=== PATIENT | female | born 1965 | race African-American/Black ===

== ENCOUNTER 2016-05-16 13:14 | Emergency (ER) | payer BC ==
[~2016-05-16] VITALS: Ht 175.3 cm; Wt 136.4 kg
[~2016-05-16 13:14] MED LIST: BACTRIM DS 8001 TAB PO; BYSTOLIC2.5 MG PO; CEPHALEXIN500 M1 PO; FERROUS SULFATE65 MG PO; FERROUSAL325 MG PO; FLEXERIL 1010 MG/TAB PO; GLUCOPHAGE1000 MG PO; GLUCOPHAGE500 MG/TAB PO; NO HOME MEDICATIONS; PERCOCET 325 MG1 TA2 PO; PRENATAL1 TA6 PO; PRINZIDE 25 MG-1 TAB PO; VITAMIN D 400400 IU PO; VITAMIN D1000 IU PO; VITAMIN D2000 I1 PO; ZESTORETIC 25 M1 TAB PO
[2016-05-16 13:21] VITALS: BP 147/75; PULSE 87; TEMP 98.1
[2016-05-16] MEDS ORDERED: ULTRAM 50MG TAB50 MG PO (14:18)
== END 2016-05-16 14:27 | disposition home or self-care (01) ==
LOC: COL.ER 13:14
DX: M25.562 Pain in left knee (principal); E11.9 Type 2 diabetes mellitus without complications; Z79.84 Long term (current) use of oral hypoglycemic drugs; I10 Essential (primary) hypertension

== ENCOUNTER 2016-08-31 16:30 | Outpatient (RCR) | payer BC ==
[2016-08-26] VITALS (9 sets, daily range): BP systolic 107–121; BP diastolic 46–62; PULSE 71–91; TEMP 97.2–98.3
[~2016-08-31 16:30] MED LIST changes: +ULTRAM 50MG TAB50 MG PO
== END 2016-11-23 | disposition home or self-care (01) ==
LOC: EUO
DX: D64.89 Other specified anemias (principal); Z87.42 Personal history of other diseases of the female genital tract
CPT/HCPCS: J7050; P9016

== ENCOUNTER 2016-09-10 16:30 | Outpatient (RCR) | payer BC, OTHER ==
[2016-08-31 17:35] VITALS: BP 126/69; PULSE 84; TEMP 98.2
[2016-09-03 16:58] VITALS: BP 131/61; PULSE 75; TEMP 97.6
[2016-09-07 17:24] VITALS: BP 151/78; PULSE 70
[~2016-09-10] VITALS: Ht 175.3 cm; Wt 130.0 kg
[2016-09-10 16:47] VITALS: BP 106/68; PULSE 79; TEMP 98.1
== END 2016-09-10 18:19 | disposition home or self-care (01) ==
LOC: EUO 16:30
DX: E61.1 Iron deficiency (principal)
CPT/HCPCS: J2916

== ENCOUNTER 2016-10-09 08:00 | Outpatient (RCR) | payer BC, OTHER | END 2016-12-01 | LOC: WSPT | DX: M25.562 Pain in left knee (principal) ==

== ENCOUNTER 2017-01-14 08:00 | Outpatient (RCR) | payer BC, OTHER | END 2017-02-18 12:01 | LOC: WSPT 08:00 | DX: M25.561 Pain in right knee (principal); M25.562 Pain in left knee ==

== ENCOUNTER 2017-03-16 14:16 | Emergency (ER) | payer BC ==
[~2017-03-16] VITALS: Ht 175.3 cm; Wt 127.3 kg
[2017-03-16 14:21] VITALS: TEMP 98.2
[2017-03-16 15:25] LABS: COLLECTION METHOD CLEAN CATCH
[2017-03-16 15:28] LABS: BASO % 0.6 % (0.0-2.0); EOS # 0.1 (0.0-0.7); EOS % 1.2 % (0-4.0); GRAN # 4.1 (1.4-6.5); GRAN % 58.9 % (42.2-75.2); HEMATOCRIT 39.1 % (37.0-47.0); HEMOGLOBIN 12.5 g/dl (12.5-16.0); LYMPH # 2.2 (1.2-3.4); LYMPH % 31.6 % (20.0-51.0); MEAN CELL VOLUME 93 fl (80.0-100.0); MEAN CORPUSCULAR HEMOGLOBIN 30 pg (27.0-31.0); MEAN CORPUSCULAR HGB CONC 32 g/dl (33.0-37.0); MEAN PLATELET VOLUME 8.6 fl (7.4-10.4); MONO # 0.5 (0.1-0.6); MONO % 7.4 % (1.7-9.3); PLATELET COUNT 398 K/mm3 (130-400); RED BLOOD COUNT 4.22 M/mm3 (4.10-5.30); WHITE BLOOD COUNT 6.9 K/mm3 (4.8-10.8)
[2017-03-16 15:38] LABS: MUCOUS Present /lpf; PH 5 (5-8); URINE APPEARANCE Cloudy; URINE BACTERIA Rare /hpf; URINE BILIRUBIN Negative (NEGATIVE); URINE BLOOD Negative (NEGATIVE); URINE COLOR Yellow; URINE GLUCOSE Negative (NEGATIVE); URINE KETONE Trace (NEGATIVE); URINE LEUKOCYTE ESTERASE Trace (NEGATIVE); URINE PROTEIN(semi-quant) 1+ (NEGATIVE); URINE RBC 0-2 /hpf
[2017-03-16 15:42] LABS: ADJUSTED CALCIUM 9.7 mg/dL (8.4-10.2); ALBUMIN 4.3 gm/dL (3.5-5.0); BILIRUBIN,TOTAL 0.3 mg/dL (0.0-1.0); C-REACTIVE PROTEIN 1.7 mg/dL (0.0-0.9); CALCIUM 9.9 mg/dL (8.4-10.2); CREATININE, serum 0.65 mg/dL (0.52-1.25); POTASSIUM 3.6 mmol/L (3.4-5.0); TOTAL PROTEIN 7.9 gm/dL (6.4-8.2)
[2017-03-16 16:37] VITALS: BP 130/72; PULSE 80
== END 2017-03-16 16:38 | disposition home or self-care (01) ==
LOC: COL.ER 14:16
PROVIDERS: Family Medicine
DX: T88.8XXA Other specified complications of surgical and medical care, not elsewhere classified, initial encounter (principal); R10.32 Left lower quadrant pain; I10 Essential (primary) hypertension; E11.9 Type 2 diabetes mellitus without complications; Z90.710 Acquired absence of both cervix and uterus; Z79.84 Long term (current) use of oral hypoglycemic drugs
CPT/HCPCS: J7030

== ENCOUNTER → 2017-03-18 | Outpatient (CLI) | payer BC | LOC: COL.RAD 11:00 | DX: T81.89XA Other complications of procedures, not elsewhere classified, initial encounter (principal); Z90.710 Acquired absence of both cervix and uterus | CPT/HCPCS: J7050; Q9967 ==

== ENCOUNTER → 2017-03-22 | Outpatient (CLI) | payer BC | LOC: COL.RAD 13:40 | DX: N99.842 Postprocedural seroma of a genitourinary system organ or structure following a genitourinary system procedure (principal); Z90.710 Acquired absence of both cervix and uterus ==

== ENCOUNTER 2017-10-25 16:59 | Emergency (ER) | payer BC ==
[~2017-10-25] VITALS: Ht 175.3 cm; Wt 131.8 kg
[2017-10-25 17:02] VITALS: TEMP 98.3
[2017-10-25 17:30] LABS: BASO % 0.6 % (0.0-2.0); EOS % 0.7 % (0-4.0); GRAN # 2.2 (1.4-6.5); GRAN % 41.1 % (42.2-75.2); HEMATOCRIT 36.8 % (37.0-47.0); HEMOGLOBIN 12.4 g/dl (12.5-16.0); LYMPH # 2.7 (1.2-3.4); LYMPH % 49.5 % (20.0-51.0); MEAN CELL VOLUME 93 fl (80.0-100.0); MEAN CORPUSCULAR HEMOGLOBIN 32 pg (27.0-31.0); MEAN CORPUSCULAR HGB CONC 34 g/dl (33.0-37.0); MEAN PLATELET VOLUME 8.9 fl (7.4-10.4); MONO # 0.4 (0.1-0.6); MONO % 8.1 % (1.7-9.3); PLATELET COUNT 323 K/mm3 (130-400); RED BLOOD COUNT 3.94 M/mm3 (4.10-5.30); REDCELL DISTRIBUTION WIDTH-CV 11.9 % (11.5-14.5)
[2017-10-25 17:39] LABS: ALANINE AMINOTRANSFERASE 18 U/L (9-52); ALBUMIN 3.9 gm/dL (3.5-5.0); ALKALINE PHOSPHATASE 79 U/L (50-136); ANION GAP 10 mmol/L (7-16); AST,SGOT 20 U/L (15-37); BILIRUBIN,TOTAL 0.3 mg/dL (0.0-1.0); BLOOD UREA NITROGEN 16 mg/dL (7-17); CALCIUM 9.4 mg/dL (8.4-10.2); CARBON DIOXIDE 25 mmol/L (22-30); CHLORIDE 100 mmol/L (98-107); CREATININE, serum 0.62 mg/dL (0.52-1.25); GLUCOSE 96 mg/dL (74-106); POTASSIUM 3.8 mmol/L (3.4-5.0); SODIUM 135 mmol/L (137-145)
[2017-10-25 17:58] LABS: TROPONIN-I < 0.012 ng/mL (0.000-0.034)
[2017-10-25 18:14] LABS: INR 0.9 (0.8-3.0); PROTHROMBIN TIME 10.1 SECONDS (9.7-12.8)
[2017-10-25 20:06] VITALS: BP 134/72; PULSE 78
== END 2017-10-25 20:06 | disposition home or self-care (01) ==
LOC: COL.ER 16:59
PROVIDERS: Family Medicine
DX: E86.0 Dehydration (principal); R07.89 Other chest pain; E11.9 Type 2 diabetes mellitus without complications; I10 Essential (primary) hypertension; Z90.710 Acquired absence of both cervix and uterus; Z79.84 Long term (current) use of oral hypoglycemic drugs
CPT/HCPCS: J7030

== ENCOUNTER → 2018-06-21 | Outpatient (CLI) | payer BC | LOC: SUN.DIA 14:03 | DX: E11.9 Type 2 diabetes mellitus without complications (principal); E78.5 Hyperlipidemia, unspecified; I10 Essential (primary) hypertension; E66.9 Obesity, unspecified | CPT/HCPCS: G0108 ==

== ENCOUNTER → 2018-06-22 | Outpatient (CLI) | payer BC | LOC: SUN.DIA 08:08 | DX: E11.9 Type 2 diabetes mellitus without complications (principal); E78.5 Hyperlipidemia, unspecified; I10 Essential (primary) hypertension; E66.9 Obesity, unspecified | CPT/HCPCS: G0108 ==

== ENCOUNTER → 2019-03-06 | Outpatient (CLI) | payer BC | LOC: MC.RAD 15:56 | DX: Z12.31 Encounter for screening mammogram for malignant neoplasm of breast (principal); N63.10 Unspecified lump in the right breast, unspecified quadrant; N63.20 Unspecified lump in the left breast, unspecified quadrant ==

== ENCOUNTER → 2020-02-05 | Outpatient (CLI) | payer BC | LOC: COL.LAB 09:40 | DX: K92.1 Melena (principal); Z20.828 Contact with and (suspected) exposure to other viral communicable diseases ==

== ENCOUNTER 2020-09-23 08:02 | Emergency (ER) | payer BC ==
[~2020-09-23] VITALS: Ht 170.2 cm; Wt 95.9 kg
[2020-09-23 08:20] VITALS: TEMP 97.9
[2020-09-23 08:38] LABS: BASO % 0.8 % (0.0-2.0); EOS % 0.6 % (0-4.0); GRAN # 1.4 (1.4-6.5); GRAN % 37.7 % (42.2-75.2); HEMATOCRIT 37.6 % (37.0-47.0); HEMOGLOBIN 12.4 g/dl (12.5-16.0); LYMPH # 1.9 (1.2-3.4); LYMPH % 51.5 % (20.0-51.0); MEAN CELL VOLUME 96 fl (80.0-100.0); MEAN CORPUSCULAR HEMOGLOBIN 32 pg (27.0-31.0); MEAN CORPUSCULAR HGB CONC 33 g/dl (33.0-37.0); MEAN PLATELET VOLUME 9.2 fl (7.4-10.4); MONO # 0.3 (0.1-0.6); MONO % 9.4 % (1.7-9.3); PLATELET COUNT 268 K/mm3 (130-400); RED BLOOD COUNT 3.91 M/mm3 (4.10-5.30); REDCELL DISTRIBUTION WIDTH-CV 12.4 % (11.5-14.5)
[2020-09-23 08:41] LABS: PROTHROMBIN TIME 11.3 SECONDS (9.7-12.8)
[2020-09-23 08:43] LABS: ALANINE AMINOTRANSFERASE 14 U/L (4-34); ALBUMIN 3.9 gm/dL (3.5-5.0); ALKALINE PHOSPHATASE 55 U/L (50-136); ANION GAP -1 mmol/L (7-16); AST,SGOT 21 U/L (15-37); BILIRUBIN,TOTAL 0.9 mg/dL (0.0-1.0); BLOOD UREA NITROGEN 18 mg/dL (7-17); CALCIUM 9.6 mg/dL (8.4-10.2); CARBON DIOXIDE 30 mmol/L (22-30); CHLORIDE 108 mmol/L (98-107); CREATININE, serum 0.58 (0.52-1.25); GLUCOSE 83 mg/dL (74-106); POTASSIUM 3.7 mmol/L (3.4-5.0); SODIUM 137 mmol/L (137-145)
[2020-09-23 08:44] LABS: PARTIAL THROMBOPLASTIN TIME 28.8 SECONDS (26.0-37.0)
[2020-09-23 09:34] LABS: TROPONIN-I < 0.012 ng/mL (0.000-0.035)
[2020-09-23 10:20] VITALS: BP 145/76; PULSE 78
== END 2020-09-23 10:24 | disposition home or self-care (01) ==
LOC: COL.ER 08:02
PROVIDERS: Family Medicine
DX: R07.89 Other chest pain (principal); R51.9 Headache, unspecified; M54.2 Cervicalgia; I10 Essential (primary) hypertension; E11.9 Type 2 diabetes mellitus without complications; Z79.899 Other long term (current) drug therapy; Z79.84 Long term (current) use of oral hypoglycemic drugs
CPT/HCPCS: J0780; J1885; J7030

== ENCOUNTER 2021-06-02 11:42 | Emergency (ER) | payer BC ==
[~2021-06-02] VITALS: Ht 170.2 cm; Wt 95.9 kg
[2021-06-02 11:55] VITALS: TEMP 97.7
[2021-06-02 12:15] LABS: BASO % 0.6 % (0.0-2.0); EOS % 0.2 % (0.0-4.0); GRAN # 2.8 K/mm3 (1.4-6.5); GRAN % 54.2 % (42.2-75.2); HEMOGLOBIN 12.6 g/dl (12.5-16.0); LYMPH # 1.8 K/mm3 (1.2-3.4); MEAN CELL VOLUME 92 fl (80.0-100.0); MEAN CORPUSCULAR HEMOGLOBIN 31 pg (27-31); MEAN CORPUSCULAR HGB CONC 34 g/dl (33.0-37.0); MEAN PLATELET VOLUME 9.4 fl (7.4-10.4); MONO # 0.5 K/mm3 (0.1-0.6); MONO % 8.8 % (1.7-9.3); PLATELET COUNT 283 K/mm3 (130-400); RED BLOOD COUNT 4.02 M/mm3 (4.10-5.30); REDCELL DISTRIBUTION WIDTH-CV 12.4 % (11.5-14.5)
[2021-06-02 12:19] LABS: PROTHROMBIN TIME 11.4 SECONDS (9.7-12.8)
[2021-06-02 12:21] LABS: PARTIAL THROMBOPLASTIN TIME 29.5 SECONDS (26.0-37.0)
[2021-06-02 12:32] LABS: ALANINE AMINOTRANSFERASE 10 U/L (0-55); ALBUMIN 3.8 gm/dL (3.5-5.0); ALKALINE PHOSPHATASE 65 U/L (40-150); ANION GAP 11 mmol/L (7-16); AST,SGOT 13 U/L (5-34); BILIRUBIN,TOTAL 0.8 mg/dL (0.2-1.2); BLOOD UREA NITROGEN 14 mg/dL (10-20); CALCIUM 9.4 mg/dL (8.4-10.2); CARBON DIOXIDE 22 mmol/L (22-29); CHLORIDE 106 mmol/L (98-107); CREATININE, serum 0.65 mg/dL (0.57-1.11); GLUCOSE 100 mg/dL (70-99); POTASSIUM 3.6 mmol/L (3.5-4.5); SODIUM 139 mmol/L (136-145)
[2021-06-02 12:39] LABS: TROPONIN-I < 0.010 ng/mL (0.00-0.033)
[2021-06-02 12:43] LABS: COLLECTION METHOD CLEAN CATCH
[2021-06-02 12:50] LABS: PH 5 (5-8); SQUAMOUS EPITHELIAL None Seen /hpf (0-10); URINE APPEARANCE Clear (CLEAR/HAZY); URINE BACTERIA None Seen /hpf (NONE SEEN); URINE BILIRUBIN Negative (NEGATIVE); URINE BLOOD Negative (NEGATIVE); URINE COLOR Straw (YELLOW); URINE GLUCOSE Negative (NEGATIVE); URINE KETONE Negative (NEGATIVE); URINE LEUKOCYTE ESTERASE Negative (NEGATIVE); URINE NITRATE Negative (NEGATIVE); URINE PROTEIN(semi-quant) Negative (NEGATIVE); URINE RBC None Seen /hpf (0-2); URINE UROBILINOGEN Negative (NEGATIVE)
[2021-06-02] MEDS ORDERED: PRILOSEC 20MG20 MG PO (14:34)
[2021-06-02 15:09] VITALS: BP 141/70; PULSE 84
== END 2021-06-02 15:22 | disposition home or self-care (01) ==
LOC: COL.ER 11:42
PROVIDERS: Family Medicine
DX: K21.9 Gastro-esophageal reflux disease without esophagitis (principal); R07.89 Other chest pain; I10 Essential (primary) hypertension; E11.9 Type 2 diabetes mellitus without complications; Z79.84 Long term (current) use of oral hypoglycemic drugs; Z79.899 Other long term (current) drug therapy
CPT/HCPCS: C9113; J3010

== ENCOUNTER 2023-04-15 15:00 | Outpatient (RCR) | payer BC ==
[~2023-04-15 15:00] MED LIST changes: +PRILOSEC 20MG20 MG PO
== END 2023-04-18 | disposition home or self-care (01) ==
LOC: WSPT
DX: M17.0 Bilateral primary osteoarthritis of knee (principal)

== ENCOUNTER 2023-05-12 15:45 | Outpatient (RCR) | payer BC | END 2023-05-19 | disposition home or self-care (01) | LOC: WSPT | DX: M25.561 Pain in right knee (principal); M25.562 Pain in left knee; Z96.653 Presence of artificial knee joint, bilateral ==

== ENCOUNTER 2023-05-25 15:45 | Outpatient (RCR) | payer BC | END 2023-05-25 17:00 | disposition home or self-care (01) | LOC: WSPT 15:45 | DX: M17.0 Bilateral primary osteoarthritis of knee (principal) ==